=== PATIENT | female | born 1980 | race Caucasian/White ===

== ENCOUNTER 2018-03-11 22:28 | Emergency (ER) | payer MEDICAID ==
[2018-03-11 22:38] VITALS: BMI 27.8
[2018-03-11] MEDS ORDERED: Sodium Chloride 0.9% 1,000 ML IV STA (23:20)
[2018-03-11] MEDS ORDERED: Iohexol 350 MG/100 ML VIAL ONE (23:58)
[2018-03-12 00:49] LABS: ALB/GLOB RATIO 1.2 (1.1-1.8); ALBUMIN 3.9 g/dL (3.0-4.8); ALT/SGPT 100 U/L (7-56); AST/SGOT 58 U/L (14-36); BLOOD UREA NITROGEN 17 mg/dL (7-21); CALCIUM 9.1 mg/dL (8.4-10.5); GFR AFRICAN-AMERICAN > 60; GFR NON-AFRICAN AMERICAN > 60
[2018-03-12 00:50] LABS: BASO # 0.03 K/mm3 (0.0-2.0); BASO % 0.3 % (0.0-3.0); EOS # 0.1 (0.0-0.7); EOS % 1.2 % (1.5-5.0); GRAN # 7.53 (1.4-6.5); GRAN % 65.3 % (50.0-68.0); HEMOGLOBIN 13.3 g/dL (12.0-16.0); LYMPH # 3.2 (1.2-3.4); LYMPH % 27.9 % (22.0-35.0); MEAN CELL VOLUME 90.8 fl (80.0-105.0); MEAN CORPUSCULAR HEMOGLOBIN 30.4 pg (25.0-35.0); MEAN CORPUSCULAR HGB CONC 33.5 g/dl (31.0-37.0); MEAN PLATELET VOLUME 11.6 fl (7.0-11.0); MONO # 0.6 (0.1-0.6); MONO % 5.3 % (1.0-6.0); RBC 4.37 10^6/uL (3.5-6.1); RED CELL DISTRIBUTION WIDTH 12.7 % (11.5-14.5); WHITE BLOOD COUNT 11.5 10^3/ul (4.5-11.0)
[2018-03-12 00:54] LABS: INR 1.02 (0.93-1.08); PARTIAL THROMBOPLASTIN TIME 19.2 Seconds (25.1-36.5); PROTHROMBIN TIME 11.6 SECONDS (9.4-12.5)
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
[2018-03-12 02:20] LABS: URINE BILIRUBIN NEGATIVE (NEGATIVE); URINE BLOOD NEGATIVE (NEGATIVE); URINE GLUCOSE (UA) NEGATIVE (NEGATIVE); URINE LEUKOCYTE ESTERASE NEGATIVE Leu/uL (NEGATIVE); URINE PROTEIN TRACE mg/dL (<30 mg/dL); URINE UROBILINOGEN 0.2 E.U./dL (<1 E.U./dL)
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
[2018-03-12 02:23] LABS: URINE APPEARANCE CLEAR (CLEAR); URINE COLOR YELLOW (YELLOW)
[2018-03-12 02:32] LABS: URINE BACTERIA SMALL (NEG); URINE RBC 0 - 2 /hpf (0-2); URINE WBC 0 - 2 /hpf (0-6)
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
[2018-03-12 03:41] VITALS: TEMP 98.7
[2018-03-12 05:33] VITALS: BP 116/65; PULSE 88; RESP 18; O2SAT 100
== END 2018-03-12 05:30 | disposition home or self-care (01) ==
LOC: ED 22:28
DX: S06.0X0A Concussion without loss of consciousness, initial encounter (principal); T14.8XXA Other injury of unspecified body region, initial encounter; Y04.0XXA Assault by unarmed brawl or fight, initial encounter; W10.9XXA Fall (on) (from) unspecified stairs and steps, initial encounter
CPT/HCPCS: 70450; 70486; 71260; 72125; 74177; 80053; 81001; 84702; 85025; 85610; 85730; 96360; 99285; J7040; Q9967